=== PATIENT | female | born 1990 | race American Indian/Alaskan Native ===

== ENCOUNTER 2016-12-07 20:25 | Emergency (ER) | payer MEDICAID ==
[2016-12-07 20:36] VITALS: BP 133/75; PULSE 70; RESP 16; TEMP 98.2; O2SAT 100
--- NOTE | 2016-12-07 20:46 | ED PDOC ---
HPI: Abdomen Time Seen by Provider: 12/07/16 20:45 Chief Complaint (Nursing): Abdominal Pain Chief Complaint (Provider): abdominal pain, constipation History Per: Patient Additional Complaint(s): 26 year old female with history of constipation for several months presents to emergency department with generalized abdominal discomfort associated with 1 episode of bloody stool earlier today. Patient has been seen by primary doctor for constipation and has been taking MiraLAX and magnesium citrate which does provide temporary relief. Patient states she always strains when she has a bowel movement and her last bowel movement was 4 days ago. Today she went to the bathroom and noticed some bleeding while trying to have a bowel movement. Patient does state she was straining at the time. Patient does have mild nausea but no vomiting, she is tolerating liquids and solids. Patient has outpatient colonoscopy scheduled for next week. No associated fever or chills. Past Medical History Reviewed: Historical Data, Nursing Documentation, Vital Signs Vital Signs: Last Vital Signs Temp 98.2 F 12/07/16 20:32 Pulse 70 12/07/16 20:32 Resp 16 12/07/16 20:32 BP 133/75 12/07/16 20:32 Pulse Ox 100 12/07/16 21:19 - Medical History PMH: No Chronic Diseases - Surgical History Surgical History: No Surg Hx - Family History Family History: States: No Known Family Hx - Living Arrangements Living Arrangements: With Family - Social History Current smoker - smoking cessation education provided: No Alcohol: None Drugs: Denies - Home Medications Home Medications: Ambulatory Orders Medication Instructions Recorded Control. 12/30/13 - Allergies Allergies/Adverse Reactions: Allergies Allergy/AdvReac Type Severity Reaction Status Date / Time latex Allergy ITCHING Verified 12/07/16 20:32 Review of Systems ROS Statement: Except As Marked, All Systems Reviewed And Found Negative Constitutional: Negative for: Fever, Chills Gastrointestinal: Positive for: Nausea, Abdominal Pain, Constipation, Hematochezia. Negative for: Vomiting, Diarrhea, Rectal Pain Genitourinary Female: Negative for: Dysuria, Hematuria Physical Exam - Reviewed Nursing Documentation Reviewed: Yes Vital Signs Reviewed: Yes - Physical Exam Appears: Positive for: Well, Non-toxic, No Acute Distress Skin: Negative for: Rash Eye Exam: Positive for: Normal appearance Cardiovascular/Chest: Positive for: Regular Rate, Rhythm Respiratory: Positive for: Normal Breath Sounds Gastrointestinal/Abdominal: Positive for: Soft. Negative for: Tenderness, Mass , Distended, Guarding, Rebound Rectal: Positive for: Normal Exam, Rectal Tone Is: (normal). Negative for: Hemorrhoids, Mass, Tenderness Extremity: Positive for: Normal ROM Neurologic/Psych: Positive for: Alert, Oriented - Laboratory Results Urine POC: Negative Urine dip results: Positive for: Blood (small). Negative for: Leukocyte Esterase, Nitrate, Ketones, Glucose, Bilirubin, Protein - ECG O2 Sat by Pulse Oximetry: 100 Pulse Ox Interpretation: Normal - Other Rad KUB X-Ray: Interpreted by Me, Viewed By Me X-Ray Interpretation: moderate feces with no obstruction Medical Decision Making Medical Decision Making: Impression: Constipation Abdominal exam is benign Patient PO bentyl PO magnesium citrate KUB test and urine dip Patient was given dietary instructions for relief of constipation. Advised OTC meds as needed for constipation. Advised PMD follow up in 1-2 days. Disposition - Clinical Impression Clinical Impression: Constipation - Patient ED Disposition Is Patient to be Admitted: No Counseled Patient/Family Regarding: Studies Performed, Diagnosis, Need For Followup - Disposition Referrals: Trisha Arrieta MD [Family Provider] - Disposition: Routine/Home Disposition Time: 22:03 Condition: STABLE Additional Instructions: Continue with magnesium citrate and suppositories as needed for relief of constipation. Drink plenty of fluids and increase fiber in diet. Follow up with primary doctor. Instructions: Constipation (DC), High Fiber Diet (ED)
[2016-12-07] MEDS ORDERED: Magnesium Citrate Oral SOL (300 ml) PO STA (21:04)
--- NOTE | 2016-12-08 10:31 | RAD ---
HISTORY: constipation COMPARISON: No prior. FINDINGS: BOWEL: Normal. No obstruction. No free air. A mild to moderate amount of fecal retention is seen in the right side of the colon BONES: Normal. OTHER FINDINGS: None. IMPRESSION: Mild constipation
== END 2016-12-07 22:04 | disposition home or self-care (01) ==
LOC: H.ER 20:25
DX: K59.00 Constipation, unspecified (principal)